=== PATIENT | female | born 1940 | race Caucasian/White ===

== ENCOUNTER 2018-07-24 09:09 | Emergency (ER) | payer MEDICARE, MEDICAID ==
[~2018-07-24] VITALS: Ht 165.1 cm; Wt 61.8 kg
[~2018-07-24 09:09] MED LIST: ACET-2119 PO; ASPI-1265 PO; CHOL100046 PO; NITR0.4T51 SL; PIOG15TA8 PO; POLY17PO10 PO; SIMV5TAB58 PO
[2018-07-24] MEDS ORDERED: POLY17PO10 PO (10:43)
[2018-07-24] MEDS ORDERED: BISA10SU60 RC (10:43)
[2018-07-24 11:04] VITALS: BP 127/53
== END 2018-07-24 11:06 | disposition home or self-care (01) ==
LOC: ER 09:09
DX: K59.00 Constipation, unspecified (principal); E11.9 Type 2 diabetes mellitus without complications; Z90.710 Acquired absence of both cervix and uterus; Z98.51 Tubal ligation status; Z88.5 Allergy status to narcotic agent; Z79.82 Long term (current) use of aspirin; Z79.899 Other long term (current) drug therapy; Z60.2 Problems related to living alone
CPT/HCPCS: 99282

== ENCOUNTER → 2018-08-15 | Emergency (ER) | payer MEDICARE, MEDICAID ==
[~2018-08-15] VITALS: Ht 162.6 cm; Wt 64.0 kg
[~2018-08-15] MED LIST changes: +BISA10SU60 RC; +OMEP20TA5 PO; +RANI150T44 PO; +acetaminophen 325mg tablet PO ONE; +famotidine/PF 10 mg/ml inj IV ONE; +iohexol 300mg/ml 100ml inj. ONE; +pantoprazole 40 MG vial IV ONE
[2018-08-15 13:30] LABS: BASOPHILS # (AUTO) 0.1 X10'3 (0-0.2); BASOPHILS % (AUTO) 0.9 % (0-1); EOSINOPHILS # (AUTO) 0.1 X10'3 (0-0.9); EOSINOPHILS % (AUTO) 1.5 % (0-6); HEMATOCRIT 33.9 % (35.0-45.0); HEMOGLOBIN 11.2 g/dl (12.0-16.0); LYMPHOCYTES # (AUTO) 1.8 X10'3 (1.1-4.8); MEAN CORPUSCULAR HEMOGLOBIN 28.6 PG (27.0-31.0); MEAN CORPUSCULAR HGB CONC 32.9 g/dL (33.0-36.5); MEAN CORPUSCULAR VOLUME 86.7 FL (78-98); MEAN PLATELET VOLUME 7.8 FL (7.4-10.4); MONOCYTES # (AUTO) 0.6 X10'3 (0-0.9); MONOCYTES % (AUTO) 9.8 % (2-12); NEUTROPHILS # (AUTO) 3.6 X10'3 (1.8-7.7); NEUTROPHILS % (AUTO) 58.8 % (42-75); PLATELET COUNT 365 X10'3 (140-440); RED BLOOD COUNT 3.91 X10'6 (4.20-5.60); RED CELL DISTRIBUTION WIDTH 15.7 % (11.5-14.5); WHITE BLOOD COUNT 6.1 X10'3 (4.5-11.0)
[2018-08-15 13:45] LABS: ALANINE AMINOTRANSFERASE 19 U/L (12-78); ALBUMIN 3.1 G/DL (3.4-5.0); ALBUMIN/GLOBULIN RATIO 0.8 (1.1-1.5); ALKALINE PHOSPHATASE 79 IU/L (46-116); ANION GAP 7 (8-16); ASPARTATE AMINO TRANSFERASE 19 U/L (10-37); BILIRUBIN,TOTAL 0.3 MG/DL (0.1-1.0); BLOOD UREA NITROGEN 5 MG/DL (7-18); BUN/CREATININE RATIO 6.4 (6.6-38.0); CALCIUM 8.3 MG/DL (8.5-10.1); CHLORIDE 97 MMOL/L (99-107); CREATININE 0.78 MG/DL (0.40-0.90); GLUCOSE 109 MG/DL (70-104); POTASSIUM 3.6 MMOL/L (3.5-5.1); SODIUM 132 MMOL/L (135-145); TOTAL CARBON DIOXIDE 27.7 MMOL/L (24-32); TOTAL PROTEIN 6.9 G/DL (6.4-8.2); eGFR 72 ML/MIN
[2018-08-15 13:50] LABS: CLARITY,URINE CLOUDY (Clear); COLOR,URINE YELLOW (Yellow); GLUCOSE, URINE NEGATIVE (Neg); KETONES,URINE NEGATIVE (Neg); LEUKOCYTE ESTERASE ,URINE MODERATE (Neg); NITRITES, URINE NEGATIVE (Neg); OCCULT BLOOD,URINE NEGATIVE (Neg); PH,URINE 5.5 (4.8-8.0); PROTEIN,URINE NEGATIVE (Neg); UROBILINOGEN,URINE 0.2 E.U/dL (0.2-1.0)
[2018-08-15 13:58] LABS: UA COLLECTION TYPE CLN CATCH MIDSTREAM
[2018-08-15 14:01] LABS: SQUAMOUS EPITHELIAL CELL,UR FEW /LPF (FEW); TRANSITIONAL EPI CELLS,URINE FEW /HPF
--- NOTE | 2018-08-15 14:01 | NUR ---
AWAITING ED PROVIDER TO SEE PT.
[2018-08-15 14:02] LABS: BACTERIA,URINE FEW /HPF (Neg); RBC,URINE 0-2 /HPF (0-2); WBC,URINE 0-4 /HPF (0-4)
--- NOTE | 2018-08-15 15:59 | NUR ---
PT TO CT.
[2018-08-15 16:22] VITALS: BP 136/76
== END | disposition home or self-care (01) ==
LOC: ER 12:49
DX: K29.00 Acute gastritis without bleeding (principal); E11.9 Type 2 diabetes mellitus without complications; Z90.710 Acquired absence of both cervix and uterus; Z98.51 Tubal ligation status; Z88.6 Allergy status to analgesic agent; Z79.82 Long term (current) use of aspirin
CPT/HCPCS: 36415; 74177; 80053; 81001; 85025; 87088; 96374; 96375; 99284; C9113; J3490; Q9967

== ENCOUNTER 2019-04-10 10:18 | Emergency (ER) | payer MEDICARE, MEDICAID ==
[~2019-04-10] VITALS: Ht 165.1 cm; Wt 64.9 kg
[~2019-04-10 10:18] MED LIST changes: +RANI-648 PO; -RANI150T44 PO; -acetaminophen 325mg tablet PO ONE; -famotidine/PF 10 mg/ml inj IV ONE; -iohexol 300mg/ml 100ml inj. ONE; -pantoprazole 40 MG vial IV ONE
[2019-04-10 11:17] LABS: CLARITY,URINE CLOUDY (Clear); COLOR,URINE YELLOW (Yellow); GLUCOSE, URINE NEGATIVE (Neg); KETONES,URINE NEGATIVE (Neg); LEUKOCYTE ESTERASE ,URINE LARGE (Neg); NITRITES, URINE POSITIVE (Neg); OCCULT BLOOD,URINE LARGE (Neg); PROTEIN,URINE NEGATIVE (Neg); UROBILINOGEN,URINE 0.2 E.U/dL (0.2-1.0)
[2019-04-10 11:19] LABS: UA COLLECTION TYPE CLN CATCH MIDSTREAM
[2019-04-10 11:24] LABS: WBC,URINE TNTC /HPF (0-4)
[2019-04-10 11:25] LABS: BACTERIA,URINE 4+ /HPF (Neg); MUCUS STRANDS NONE SEEN /LPF (Neg); RBC,URINE 20-50 /HPF (0-2); SQUAMOUS EPITHELIAL CELL,UR MANY /LPF (FEW); TRANSITIONAL EPI CELLS,URINE MANY /HPF; WBC CLUMPS,URINE MANY /HPF (NEGATIVE)
[2019-04-10] MEDS ORDERED: LIDOcaine 1% 30ml preserv. free vial IJ ONE (11:25)
[2019-04-10] MEDS ORDERED: L. R1CAP4 PO (11:59)
[2019-04-10] MEDS ORDERED: CEPH-572 PO (11:59)
[2019-04-10 12:05] VITALS: BP 144/44
== END 2019-04-10 12:07 | disposition home or self-care (01) ==
LOC: ER 10:19
DX: N39.0 Urinary tract infection, site not specified (principal); M25.511 Pain in right shoulder; M54.6 Pain in thoracic spine; E11.9 Type 2 diabetes mellitus without complications; Z90.710 Acquired absence of both cervix and uterus; Z98.51 Tubal ligation status; Z88.5 Allergy status to narcotic agent; Z79.82 Long term (current) use of aspirin; Z79.899 Other long term (current) drug therapy
CPT/HCPCS: 20552; 81001; 99284; J2001

== ENCOUNTER 2019-07-30 14:14 | Emergency (ER) | payer MEDICARE, MEDICAID ==
[~2019-07-30] VITALS: Ht 167.6 cm; Wt 66.0 kg
[~2019-07-30 14:14] MED LIST changes: -CHOL100046 PO; +L. R1CAP4 PO; -OMEP20TA5 PO; -PIOG15TA8 PO; -SIMV5TAB58 PO
[2019-07-30 14:23] VITALS: BP 126/47
[2019-07-30 15:10] LABS: CLARITY,URINE CLOUDY (Clear); COLOR,URINE STRAW (Yellow); GLUCOSE, URINE NEGATIVE (Neg); KETONES,URINE NEGATIVE (Neg); LEUKOCYTE ESTERASE ,URINE MODERATE (Neg); NITRITES, URINE NEGATIVE (Neg); OCCULT BLOOD,URINE TRACE-LYSED (Neg); PROTEIN,URINE NEGATIVE (Neg); UA COLLECTION TYPE CLN CATCH MIDSTREAM; UROBILINOGEN,URINE 0.2 E.U/dL (0.2-1.0)
[2019-07-30 15:18] LABS: BACTERIA,URINE 2+ /HPF (Neg); MUCUS STRANDS NONE SEEN /LPF (Neg); RBC,URINE 0-2 /HPF (0-2); SQUAMOUS EPITHELIAL CELL,UR FEW /LPF (FEW); WBC,URINE 50-100 /HPF (0-4)
[2019-07-30 15:19] LABS: TRANSITIONAL EPI CELLS,URINE FEW /HPF; WBC CLUMPS,URINE MODERATE /HPF (NEGATIVE)
[2019-07-30] MEDS ORDERED: CEPH-572 PO (15:27)
== END 2019-07-30 15:43 | disposition home or self-care (01) ==
LOC: ER 14:14
DX: N39.0 Urinary tract infection, site not specified (principal); R39.15 Urgency of urination; E11.9 Type 2 diabetes mellitus without complications; Z86.2 Personal history of diseases of the blood and blood-forming organs and certain disorders involving the immune mechanism; Z90.710 Acquired absence of both cervix and uterus; Z98.51 Tubal ligation status; Z60.2 Problems related to living alone; Z88.5 Allergy status to narcotic agent; Z79.2 Long term (current) use of antibiotics; Z79.82 Long term (current) use of aspirin; Z79.899 Other long term (current) drug therapy
CPT/HCPCS: 81001; 87077; 87088; 87186; 99283

== ENCOUNTER 2020-01-07 08:35 | Emergency (ER) | payer MEDICARE, MEDICAID ==
[~2020-01-07] VITALS: Ht 162.6 cm; Wt 69.4 kg
[~2020-01-07 08:35] MED LIST changes: +CEPH-572 PO
[2020-01-07 08:36] VITALS: BP 110/52
[2020-01-07 09:39] LABS: BASOPHILS # (AUTO) 0.1 X10'3 (0-0.2); BASOPHILS % (AUTO) 1.5 % (0-1); EOSINOPHILS # (AUTO) 0.2 X10'3 (0-0.9); EOSINOPHILS % (AUTO) 2.4 % (0-6); HEMATOCRIT 30.4 % (35.0-45.0); HEMOGLOBIN 9.6 g/dl (12.0-16.0); LYMPHOCYTES # (AUTO) 1.5 X10'3 (1.1-4.8); LYMPHOCYTES % (AUTO) 21.8 % (21-51); MEAN CORPUSCULAR HEMOGLOBIN 24.7 PG (27.0-31.0); MEAN CORPUSCULAR HGB CONC 31.5 g/dL (33.0-36.5); MEAN CORPUSCULAR VOLUME 78.4 FL (78-98); MEAN PLATELET VOLUME 7.5 FL (7.4-10.4); MONOCYTES # (AUTO) 0.6 X10'3 (0-0.9); MONOCYTES % (AUTO) 8.2 % (2-12); NEUTROPHILS # (AUTO) 4.6 X10'3 (1.8-7.7); NEUTROPHILS % (AUTO) 66.1 % (42-75); PLATELET COUNT 470 X10'3 (140-440); RED BLOOD COUNT 3.88 X10'6 (4.20-5.60); RED CELL DISTRIBUTION WIDTH 16.1 % (11.5-14.5)
[2020-01-07 10:01] LABS: ALANINE AMINOTRANSFERASE 15 U/L (12-78); ALBUMIN 3.1 G/DL (3.4-5.0); ALBUMIN/GLOBULIN RATIO 0.7 (1.1-1.5); ALKALINE PHOSPHATASE 61 IU/L (46-116); ANION GAP 7 (8-16); ASPARTATE AMINO TRANSFERASE 18 U/L (10-37); BILIRUBIN,TOTAL 0.2 MG/DL (0.1-1.0); BLOOD UREA NITROGEN 10 MG/DL (7-18); BUN/CREATININE RATIO 11.9 (6.6-38.0); CALCIUM 8.5 MG/DL (8.5-10.1); CHLORIDE 100 MMOL/L (99-107); CREATININE 0.84 MG/DL (0.40-0.90); GLUCOSE 184 MG/DL (70-104); LIPASE 333 U/L (73-393); POTASSIUM 4.2 MMOL/L (3.5-5.1); SODIUM 135 MMOL/L (135-145); TOTAL CARBON DIOXIDE 27.8 MMOL/L (24-32); TOTAL PROTEIN 7.4 G/DL (6.4-8.2); eGFR 66 ML/MIN
== END 2020-01-07 10:01 | disposition home or self-care (01) ==
LOC: ER 08:35
DX: K59.00 Constipation, unspecified (principal); E11.9 Type 2 diabetes mellitus without complications; Z90.710 Acquired absence of both cervix and uterus; Z98.51 Tubal ligation status; Z98.890 Other specified postprocedural states
CPT/HCPCS: 36415; 80053; 83690; 85025; 99283

== ENCOUNTER 2023-03-10 09:47 | Emergency (ER) | payer OTHER, MEDICAID ==
[~2023-03-10] VITALS: Ht 165.1 cm; Wt 65.5 kg
[2023-03-10 12:12] LABS: BILIRUBIN,URINE NEGATIVE (Neg); CLARITY,URINE CLOUDY (Clear); COLOR,URINE YELLOW (Yellow); GLUCOSE, URINE NEGATIVE (Neg); KETONES,URINE NEGATIVE (Neg); LEUKOCYTE ESTERASE ,URINE LARGE (Neg); NITRITES, URINE POSITIVE (Neg); OCCULT BLOOD,URINE TRACE-INTACT (Neg); PROTEIN,URINE NEGATIVE (Neg); UROBILINOGEN,URINE 0.2 E.U/dL (0.2-1.0)
[2023-03-10 12:20] LABS: UA COLLECTION TYPE CLN CATCH MIDSTREAM
[2023-03-10 12:22] LABS: BACTERIA,URINE 4+ /HPF (Neg); WBC,URINE TNTC /HPF (0-4)
[2023-03-10 12:23] LABS: RBC,URINE 20-50 /HPF (0-2); SQUAMOUS EPITHELIAL CELL,UR MANY /LPF (FEW)
[2023-03-10] MEDS ORDERED: CIPR-259 PO (12:43)
[2023-03-10 13:43] VITALS: BP 133/47; PULSE 61; RESP 16; TEMP 97.4; O2SAT 97
== END 2023-03-10 13:54 | disposition home or self-care (01) ==
LOC: ER 09:47
DX: N39.0 Urinary tract infection, site not specified (principal); E11.9 Type 2 diabetes mellitus without complications; D64.9 Anemia, unspecified; Z88.5 Allergy status to narcotic agent; Z88.8 Allergy status to other drugs, medicaments and biological substances; Z79.899 Other long term (current) drug therapy
CPT/HCPCS: 81001; 99283

== ENCOUNTER 2023-08-27 11:31 | Emergency (ER) | payer OTHER, MEDICAID ==
[~2023-08-27] VITALS: Ht 165.1 cm; Wt 54.9 kg
[2023-08-27 11:36] VITALS: BP 119/52; PULSE 69; RESP 15; TEMP 97.6; O2SAT 100
[2023-08-27 12:24] LABS: BASOPHILS % (AUTO) 0.5 % (0-1); EOSINOPHILS # (AUTO) 0.1 X10'3 (0-0.9); EOSINOPHILS % (AUTO) 1.3 % (0-6); HEMATOCRIT 38.6 % (35.0-45.0); HEMOGLOBIN 12.7 g/dl (12.0-16.0); LYMPHOCYTES # (AUTO) 0.9 X10'3 (1.1-4.8); LYMPHOCYTES % (AUTO) 18.5 % (21-51); MEAN CORPUSCULAR HEMOGLOBIN 30.5 PG (27.0-31.0); MEAN CORPUSCULAR HGB CONC 32.8 g/dL (33.0-36.5); MEAN CORPUSCULAR VOLUME 92.8 FL (78-98); MONOCYTES # (AUTO) 0.4 X10'3 (0-0.9); MONOCYTES % (AUTO) 8.5 % (2-12); NEUTROPHILS # (AUTO) 3.6 X10'3 (1.8-7.7); NEUTROPHILS % (AUTO) 71.2 % (42-75); PLATELET COUNT 388 X10'3 (140-440); RED BLOOD COUNT 4.16 X10'6 (4.20-5.60); WHITE BLOOD COUNT 5.1 X10'3 (4.5-11.0)
[2023-08-27 12:31] LABS: ALANINE AMINOTRANSFERASE 10 U/L (12-78); ALBUMIN 3.6 G/DL (3.4-5.0); ALBUMIN/GLOBULIN RATIO 0.9 (1.1-1.5); ALKALINE PHOSPHATASE 66 IU/L (46-116); ANION GAP 8 (8-16); ASPARTATE AMINO TRANSFERASE 18 U/L (10-37); BILIRUBIN,TOTAL 0.4 MG/DL (0.1-1.0); BLOOD UREA NITROGEN 13 MG/DL (7-18); BUN/CREATININE RATIO 14.6 (10.0-20.0); CALCIUM 9.2 MG/DL (8.5-10.1); CHLORIDE 103 MMOL/L (99-107); CREATININE 0.89 MG/DL (0.40-0.90); GLUCOSE 124 MG/DL (70-104); LIPASE 100 U/L (16-77); POTASSIUM 4.2 MMOL/L (3.5-5.1); SODIUM 139 MMOL/L (135-145); TOTAL CARBON DIOXIDE 28.4 MMOL/L (24-32); TOTAL PROTEIN 7.8 G/DL (6.4-8.2); eCRCL 43 ML/MIN; eGFR 61 ML/MIN
[2023-08-27 14:13] LABS: BILIRUBIN,URINE NEGATIVE (Neg); CLARITY,URINE CLOUDY (Clear); COLOR,URINE YELLOW (Yellow); GLUCOSE, URINE NEGATIVE (Neg); KETONES,URINE NEGATIVE (Neg); LEUKOCYTE ESTERASE ,URINE SMALL (Neg); NITRITES, URINE NEGATIVE (Neg); OCCULT BLOOD,URINE NEGATIVE (Neg); PH,URINE 8.5 (4.8-8.0); PROTEIN,URINE NEGATIVE (Neg); UROBILINOGEN,URINE 0.2 E.U/dL (0.2-1.0)
[2023-08-27 14:27] LABS: UA COLLECTION TYPE CLN CATCH MIDSTREAM
[2023-08-27 14:29] LABS: SQUAMOUS EPITHELIAL CELL,UR MODERATE /LPF (FEW)
[2023-08-27 14:31] LABS: AMORPHOUS PHOSPHATES 4+; BACTERIA,URINE 1+ /HPF (Neg); RBC,URINE NONE SEEN /HPF (0-2)
== END 2023-08-27 15:41 | disposition left against medical advice (07) ==
LOC: ER 11:31
DX: R10.13 Epigastric pain (principal); Z53.21 Procedure and treatment not carried out due to patient leaving prior to being seen by health care provider
CPT/HCPCS: 36415; 80053; 81001; 83690; 85025; 87077; 87088; 87186

== ENCOUNTER 2023-08-30 19:33 | Emergency (ER) | payer OTHER, MEDICAID ==
[~2023-08-30] VITALS: Ht 165.1 cm; Wt 63.6 kg
[2023-08-30 20:34] LABS: BILIRUBIN,URINE NEGATIVE (Neg); CLARITY,URINE TURBID (Clear); COLOR,URINE STRAW (Yellow); GLUCOSE, URINE NEGATIVE (Neg); KETONES,URINE NEGATIVE (Neg); LEUKOCYTE ESTERASE ,URINE LARGE (Neg); NITRITES, URINE NEGATIVE (Neg); OCCULT BLOOD,URINE TRACE-INTACT (Neg); PROTEIN,URINE NEGATIVE (Neg); UROBILINOGEN,URINE 0.2 E.U/dL (0.2-1.0)
[2023-08-30 20:35] LABS: BASOPHILS # (AUTO) 0.1 X10'3 (0-0.2); BASOPHILS % (AUTO) 1.3 % (0-1); EOSINOPHILS # (AUTO) 0.1 X10'3 (0-0.9); EOSINOPHILS % (AUTO) 2.3 % (0-6); HEMATOCRIT 38.6 % (35.0-45.0); LYMPHOCYTES # (AUTO) 1.3 X10'3 (1.1-4.8); LYMPHOCYTES % (AUTO) 23.6 % (21-51); MEAN CORPUSCULAR HGB CONC 33.7 g/dL (33.0-36.5); MEAN CORPUSCULAR VOLUME 91.9 FL (78-98); MEAN PLATELET VOLUME 7.5 FL (7.4-10.4); MONOCYTES # (AUTO) 0.6 X10'3 (0-0.9); NEUTROPHILS # (AUTO) 3.5 X10'3 (1.8-7.7); NEUTROPHILS % (AUTO) 62.8 % (42-75); PLATELET COUNT 368 X10'3 (140-440); RED CELL DISTRIBUTION WIDTH 12.9 % (11.5-14.5); WHITE BLOOD COUNT 5.6 X10'3 (4.5-11.0)
[2023-08-30 20:37] LABS: UA COLLECTION TYPE CLN CATCH MIDSTREAM
[2023-08-30 20:38] LABS: URINE HCG NEGATIVE (NEG)
[2023-08-30 20:43] LABS: BACTERIA,URINE 3+ /HPF (Neg); SQUAMOUS EPITHELIAL CELL,UR MANY /LPF (FEW)
[2023-08-30 20:44] LABS: AMORPHOUS PHOSPHATES 3+; RBC,URINE NONE SEEN /HPF (0-2); WBC,URINE TNTC /HPF (0-4)
[2023-08-30 20:50] LABS: ALBUMIN/GLOBULIN RATIO 0.8 (1.1-1.5); BLOOD UREA NITROGEN 16 MG/DL (7-18); CHLORIDE 98 MMOL/L (99-107); GLUCOSE 128 MG/DL (70-104); SODIUM 137 MMOL/L (135-145)
[2023-08-30 21:15] LABS: ALANINE AMINOTRANSFERASE 14 U/L (12-78); ALBUMIN 3.6 G/DL (3.4-5.0); ALKALINE PHOSPHATASE 75 IU/L (46-116); ANION GAP 8 (8-16); ASPARTATE AMINO TRANSFERASE 18 U/L (10-37); BILIRUBIN,TOTAL 0.4 MG/DL (0.1-1.0); BUN/CREATININE RATIO 17.4 (10.0-20.0); CALCIUM 10.4 MG/DL (8.5-10.1); CREATININE 0.92 MG/DL (0.40-0.90); LIPASE 101 U/L (16-77); POTASSIUM 3.8 MMOL/L (3.5-5.1); TOTAL CARBON DIOXIDE 30.7 MMOL/L (24-32); TOTAL PROTEIN 8.3 G/DL (6.4-8.2); eCRCL 43 ML/MIN; eGFR 59 ML/MIN
[2023-08-30 22:00] VITALS: BP 140/55; PULSE 54; O2SAT 97
[2023-08-30 22:46] VITALS: RESP 18
[2023-08-30 23:43] VITALS: TEMP 97.1
== END 2023-08-30 23:45 | disposition home or self-care (01) ==
LOC: ER 19:34
DX: R07.89 Other chest pain (principal); K81.0 Acute cholecystitis; R10.32 Left lower quadrant pain; R10.31 Right lower quadrant pain; E11.9 Type 2 diabetes mellitus without complications; Z88.5 Allergy status to narcotic agent; Z88.6 Allergy status to analgesic agent; Z79.1 Long term (current) use of non-steroidal anti-inflammatories (NSAID); Z79.82 Long term (current) use of aspirin; Z79.899 Other long term (current) drug therapy; Z90.710 Acquired absence of both cervix and uterus; Z98.51 Tubal ligation status
CPT/HCPCS: 36415; 74176; 76700; 80053; 81001; 81025; 83690; 84484; 85025; 93005; 99284

== ENCOUNTER 2024-01-02 09:00 | Emergency (ER) | payer OTHER, MEDICAID ==
[~2024-01-02] VITALS: Ht 165.1 cm; Wt 64.6 kg
[2024-01-02] MEDS ORDERED: GABA-530 PO (09:45)
[2024-01-02 09:57] VITALS: BP 118/70; PULSE 70; RESP 14; TEMP 98.2; O2SAT 96
== END 2024-01-02 09:59 | disposition home or self-care (01) ==
LOC: ER 09:01
DX: M25.512 Pain in left shoulder (principal); M79.2 Neuralgia and neuritis, unspecified; E11.9 Type 2 diabetes mellitus without complications; Z88.5 Allergy status to narcotic agent; Z79.1 Long term (current) use of non-steroidal anti-inflammatories (NSAID); Z79.82 Long term (current) use of aspirin; Z79.899 Other long term (current) drug therapy; Z79.2 Long term (current) use of antibiotics; Z90.710 Acquired absence of both cervix and uterus; Z98.51 Tubal ligation status
CPT/HCPCS: 99283

== ENCOUNTER 2024-02-02 11:18 | Emergency (ER) | payer OTHER, MEDICAID ==
[~2024-02-02] VITALS: Ht 162.6 cm; Wt 68.2 kg
[~2024-02-02 11:18] MED LIST changes: +GABA-530 PO
[2024-02-02 11:35] VITALS: BP 145/54; PULSE 56; RESP 18; TEMP 97.8; O2SAT 98
== END 2024-02-02 13:53 | disposition left against medical advice (07) ==
LOC: ER 11:19
DX: D48.5 Neoplasm of uncertain behavior of skin (principal); E11.9 Type 2 diabetes mellitus without complications; Z88.5 Allergy status to narcotic agent; Z79.1 Long term (current) use of non-steroidal anti-inflammatories (NSAID); Z79.82 Long term (current) use of aspirin; Z79.2 Long term (current) use of antibiotics; Z90.710 Acquired absence of both cervix and uterus; Z98.51 Tubal ligation status
CPT/HCPCS: 99281

== ENCOUNTER 2024-09-05 18:35 | Emergency (ER) | payer BC, MEDICAID ==
[~2024-09-05] VITALS: Ht 165.1 cm; Wt 68.2 kg
[2024-09-05 18:42] VITALS: BP 127/47; PULSE 61; TEMP 98.1; O2SAT 96
--- NOTE | 2024-09-05 20:05 | Physician Documentation ---
History of Present Illness ~ Chief Complaint: Mechanical Fall Stated Complaint: JAW PAIN Time Seen by MD: 19:53 Primary Medical Doctor: Mo MARCUS This is a pleasant 84-year-old female presents for evaluation of left jaw pain after fall. Circumstances of this fall are somewhat unclear, she states that she had fallen around with a ago, has been seen at [facility] for it, but they did not give her breath sounds. She does not know what happened. She reports some abdominal pain, worse with opening the jaw. She reports her neck pain. No particular palliating or aggravating factors. Not on blood thinners. Denies any other symptoms such as chest pain difficulty breathing. Tetanus within 5 Years?: Yes Medication Reconciliation Allergies: Coded Allergies: codeine (Verified Allergy, Unknown, Itching, 02/02/24) Scheduled Acetaminophen (Tylenol), 1-2 TABLET PO BID, (Reported) Aspirin (Aspirin), 81 MG PO DAILY, (Reported) Bisacodyl (Dulcolax), 1 SUPP RC DAILY Cephalexin (Keflex), 1 CAP PO Q12H Gabapentin (Gabapentin), 1 CAP PO Q8H L. Rhamnosus GG/Inulin (Culturelle Probiotics Capsule), 1 CAP PO Q12H PRN Polyethylene Glycol 3350* (Miralax*), 17 GM PO DAILY Ranitidine HCl (Zantac), 1 TAB PO Q12H Scheduled PRN Nitroglycerin SL* (Nitrostat SL*), 1 TAB SL Q5MIN PRN for Chest pain Q5min PRNx3-call MD, (Reported) Past Medical History Past Medical History: No Pertinent History, Anemia, UTI, Diabetes Past Surgical History: hysterectomy, tubal ligation, other Patient History: (DM Type 2) Diabetes mellitus type 2 sister Alcohol Use: None Drug Use: none Lives with: Alone Lives In: Home Occupation: retired Review of Systems ROS 10 point review of systems was performed and unless noted above in HPI is negative for acute process/complaint. Physical Exam Vital Signs: Temperature: 98.1, Source: Oral, Heart Rate: 61, Respiratory Rate: 16, BP: 127/47, Pulse Oximetry: 96, Weight: 68.180 Oxygen Flow Rate: 0 Physical Exam Physical examination: GENERAL: Awake, alert, oriented, GCS 15, no apparent distress, non-toxic appearing, answers questions, follows commands appropriately. HEENT: Atraumatic, normocephalic, pupils equal, extraocular muscles intact Active gross movements, sclerae anicteric, mucus membranes moist, no stridor. NECK: Midline, no JVD CARDIOVASCULAR: Good skin perfusion without evidence of pallor, mottling. PULMONARY: Nonlabored, symmetric chest rise, no audible wheezing, no accessory muscle use, no respiratory distress, speaking in full sentences. GASTROINTESTINAL: Not distended. NEUROLOGIC: Lucid with normal mental status. Normal facial symmetry. Moves all extremities symmetrically and with purpose. No truncal ataxia. Speech is fluid without evidence of dysarthria or aphasia, no focal deficits appreciated. EXTREMITIES: Acute deformities Skin: warm, dry PSYCHIATRIC: Normal affect, normal insight, normal concentration. Focused exam: [] No trismus. Progress Results/Orders Results/Orders Orders - TRELL CHENEY DO Ct Head (09/05/24 ) Ct Facial Bones/Soft Tissue (09/05/24 ) Ct Cervical Spine (09/05/24 ) Completed Orders - TRELL CHENEY DO Ct Head (09/05/24 ) Ct Facial Bones/Soft Tissue (09/05/24 ) Ct Cervical Spine (09/05/24 ) Ketorolac Trometh 30mg/Ml Vial (Toradol (09/05/24 20:10) Medications Received in ER Medications (Trade) Dose Ordered Sig/Jeramy Route PRN Reason Start Time Stop Time Status Last Admin Dose Admin (Toradol inj. 30mg/ml) 30 mg ONCE ONCE IM 09/05/24 20:10 09/05/24 20:11 DC 09/05/24 20:47 30 MG Vital Signs 09/05/24 09/05/24 09/05/24 18:42 19:59 20:47 Temp 98.1 Pulse 61 Resp 16 16 18 B/P (MAP) 127/47 Pulse Ox 96 O2 Flow Rate 0 Medical Decision Making Findings Facility Status: ED Holds, E process The plan was discussed with the patient, who demonstrates clear understanding of the plan and is in agreement with the plan unless otherwise noted in the chart. All questions have been answered, all concerns were addressed unless otherwise documented. I was available throughout their ED stay for frequent reassessment and questions. Differential Diagnoses (considered and possible or likely): [Ground level fall, acute traumatic pain, TMJ arthritis versus TMJ fracture/dislocation is unlikely given the fact that she is able to open her jaw, C-spine fracture subluxation has been considered, unlikely to represent subacute subdural. Concussion had also been considered.] ??Differential Diagnoses (considered and unlikely, not requiring evaluation currently): [No evidence of lateralizing signs to suspect a stroke] MDM Data Please see HPI for the following: Independent Historians and external Records Review. Historian: [Patient] Independent Historians: ?[Record review including records from [facility]] Medication Management: [Reviewed medication list] Social History and determinants: [Reviewed] Please see the body of the note for the following: Any independent interpretations of ECG, imaging studies. All vitals signs/haemodynamics, ordered tests were independently reviewed and interpreted by myself. Nursing triage complaint and vitals reviewed, additional nursing notes were reviewed as available and I agree unless otherwise noted or documented in contradiction in the chart Vital Signs: Independently reviewed Labs: Independently interpreted Imaging: Independently interpreted Old Medical Records: Independently reviewed, see [facility] for relevant summary and information Pulse Oximetry: [98%] interpreted as [normal on room air] by me [Forming Department Supervisor: [Regular Rate, Regular rhythm, no ectopy, NSR] reviewed and interpreted by me] Additionally notably showing: [Hemodynamically stable. Unremarkable imaging without evidence of fracture or subluxation of cervical spine, jaw, no acute intracranial process.] Tests considered but not ordered include: [Hematologic workup has been considered but does not appear to be necessary given mechanical nature of the injury.] Social Determinants of Health Impact: Patient was evaluated in [facility] [place] to healthcare due to below par ratio of patient to medical providers. [] Comorbid Conditions Impacting Present Evaluation and Care/Treatment: [None reported by the patient] Management Discussions with other Healthcare Providers: [None] Treatment and Disposition Medication Management (Given or considered): [Pain management]. See EMR for details Consideration for Hospitalization/Escalation/Deescalation of Care: Admission for observation has been considered, [however the patient is able to tolerate p.o., their symptoms are controlled, they are able to rely on oral medications, and th eir chief complaint/diagnosis can be managed on outpatient basis.] ?ED Course:?[No clinical deterioration.] ?Shared decision making:?[Patient is hemodynamically stable for discharge home with follow with their primary care provider. [ ] Specific and cautious return precautions provided and discussed with full understanding. Any incidental findings were also discussed and follow up recommendations given. [] All questions answered. Patient/family were able to verbalize back return precautions. Patient/family agree to plan. Copies of imaging and laboratory studies were provided.] Code status:?FULL Please see the full Electronic Medical Record for full details of nursing documentation, medications list, other records of complete past medical history and conditions, vital signs, laboratory studies, and any radiologic study interpretations by radiologists. Portions of this note were completed using [employer] dictation software and as a result there may exist minor errors in spelling. I have reviewed elements of past family and social history and agree as included in note. Departure Disposition: 01 HOME / SELF CARE / HOMELESS Impression: Primary Impression: Arthralgia of left temporomandibular joint Additional Impressions: Ground-level fall Neck pain Condition: Improved Discharge Instructions: Temporomandibular Joint Syndrome Additional Instructions: There is no clear explanation for your pain. There is no fracture. You need to follow-up with nuclear unit operator. Referrals: NO PRIMARY CARE PROVIDER (PCP) Education Educated: Patient Educated regarding: diagnosis, treatment, prognosis, need for follow up Signature Scribe Signature: No scribe Attestation: This note accurately reflects clinical decisions, work performed by myself, DO NONI Ragland NICHOLAS M DO Sep 05, 2024 20:05
[2024-09-05 20:47] VITALS: RESP 18
[2024-09-05] MEDS: ketorolac trometh 30MG/ML vial 30 MG/ML VIAL IM ONE (20:47)
--- NOTE | 2024-09-05 20:52 | RADIOLOGY REPORT ---
CT CT HEAD INDICATION: Fall with head strike COMPARISON: None TECHNIQUE: CT of the head without intravenous contrast. RADIATION DOSE: CTDIvol: mGy, DLP: mGy*cm FINDINGS: There is no evidence of intracranial hemorrhage, infarct, extra-axial collection, mass effect, midlin e shift, herniation or hydrocephalus. Mild ventricular and sulcal enlargement related to mild cerebra l volume loss. The sequeira-white differentiation is intact. Visualized paranasal sinuses and mastoid air cells are clear. Soft tissues and osseous structures are unremarkable. IMPRESSION: No hemorrhage or other acute intracranial abnormality.
--- NOTE | 2024-09-05 20:57 | RADIOLOGY REPORT ---
EXAM: CT CT CERVICAL SPINE HISTORY: Fall, neck pain COMPARISON: None CTDIvol mGy, DLP mGy*cm. TECHNIQUE: Multiple axial CT images of the spine were obtained using bone algorithm. Axial and coron al reformatting was done. Bone and soft tissue windows were reviewed. FINDINGS: No prevertebral soft tissue abnormality noted. Mild 2-3 mm anterolisthesis of C4 on C5; the alignment is otherwise unremarkable. The cervical vertebral bodies demonstrate no evidence of fracture or disl ocation. Paraspinal soft tissues appear unremarkable. Multilevel cervical spondylosis with mild-to-mo derate spinal canal narrowing at C4-C5. IMPRESSION: No evidence of cervical spine fracture or dislocation.
--- NOTE | 2024-09-05 21:05 | RADIOLOGY REPORT ---
HISTORY: Left TMJ pain after fall TECHNIQUE: Nonenhanced axial images through the facial bones with coronal and sagittal MPR. Radiation Dose Information: CT Dose: CTDI volume is mGy. Dose-length product is mGy*cm COMPARISON: None FINDINGS: Soft tissues: Unremarkable Mandible: Unremarkable. TM joints appear unremarkable. Maxilla: Unremarkable Zygomatic arches: Unremarkable Nasal bone: Unremarkable Orbits: Unremarkable Paranasal Sinuses / Mastoid air cells / Middle ear cavities: Clear IMPRESSION: No facial fracture. Radiation optimization: All CT scans at this facility use at least one of these dose optimization miesha hniques: automated exposure control mA and/or kV adjustment per patient size (includes targeted exam s where dose is matched to clinical indication) or iterative reconstruction.
== END 2024-09-05 21:26 | disposition home or self-care (01) ==
LOC: ER 18:36
DX: M26.622 Arthralgia of left temporomandibular joint (principal); M54.2 Cervicalgia; E11.9 Type 2 diabetes mellitus without complications; Z88.5 Allergy status to narcotic agent; Z88.8 Allergy status to other drugs, medicaments and biological substances; Z90.710 Acquired absence of both cervix and uterus; W18.30XA Fall on same level, unspecified, initial encounter; Y93.89 Activity, other specified; Y92.89 Other specified places as the place of occurrence of the external cause; Y99.8 Other external cause status
CPT/HCPCS: 70450; 70486; 72125; 96372; 99285; J1885